=== PATIENT | male | born 1975 | race Caucasian/White ===

== ENCOUNTER 2018-10-29 02:50 | Emergency (ER) | payer MEDICAID ==
[~2018-10-29] VITALS: Ht 198.1 cm; Wt 213.2 kg
[2018-10-29 02:57] VITALS: BP 111/80
[2018-10-29] MEDS ORDERED: cefTRIAXone SOD 1,000 MG VL IM ONE ×2 (03:30→04:00)
[2018-10-29] MEDS ORDERED: TRIAMCINOLONE 40MG/ML 1ML VIAL IM ONE (03:30)
== END 2018-10-29 04:32 | disposition home or self-care (01) ==
LOC: ER 02:50
DX: J40 Bronchitis, not specified as acute or chronic (principal)
CPT/HCPCS: 71046; 96372; 99283; J0696; J3301